=== PATIENT | male | born 1960 | race Caucasian/White ===

== ENCOUNTER 2017-06-20 12:29 | Inpatient (IN) | payer MEDICARE, OTHER ==
[~2017-06-20] VITALS: Ht 180.3 cm; Wt 86.0 kg
--- NOTE | ~2017-06-20 | CN ---
PATIENT NAME:STEPHANIE PENDLETON MEDICAL RECORD: [id number] : 58 LOCATION:D.MS Tong2207 ADMIT DATE: 06/20/17 ACCOUNT: [id number] CONSULTING PHYSICIAN: JOAQUÍN SCHWARTZ MD REFERRING PHYSICIAN: KIMI BACA MD DATE OF CONSULTATION: 06/25/2017 HISTORY OF PRESENT ILLNESS: Mr. Pendleton is a 57-year-old male I was asked to see by Dr. Torre. He has been admitted, he has pneumonia, sinusitis, fever. He had elevated white count of 50,000 and probable leukemia. I have been asked to see him about the sinusitis. He has been having pain in the left cheek for the past couple of weeks. He does have a history of iritis where the eye will get inflamed, it goes back further now on the same side. Him and the family both say that the eye gets inflamed, it is visibly changed, but it is not bothering him now, so it does fluctuate, hard to say if there is any relation to the sinus infection he has currently. He does not have any nasal drainage. No nasal obstruction. PAST MEDICAL HISTORY: Reviewed. PHYSICAL EXAMINATION: GENERAL: He is slightly short of breath, mildly labored breathing with some effort, but not in distress. He has got a good voice. He is a good historian. EYES: Sclerae and conjunctivae are normal. His pupils are small, reactive, and completely normal. There is no change to either eye. No periorbital changes. No erythema, everything looks perfectly normal right now. EARS: Canals and TMs are normal. NOSE: No masses, polyps, or drainage. I could see well into the nose, there is no congestion. I do not see any indication of infection. ORAL CAVITY AND OROPHARYNX: He has got some bad teeth. He has got some teeth that are bothering him, both on the left side mandibular tooth, it has got extensive decay and cavity in left posterior molar, but he says it is not bothering him right now. NECK: Normal. Cranial nerves II through VII, XI and XII are normal. CT REPORT: I could not get the films, but the report shows opacification of the left maxillary sinus with mucosal thickening diffusely to the other sinuses and some of the left anterior ethmoids involved as well. IMPRESSION: Leukemia, immunosuppression, and left maxillary sinusitis, possibly a dental source with that bad tooth on that left side. This has been bothering him in isolated opacified sinus. I do not really get the impression that there is any involvement of the eye due to the sinusitis, I think he also has a separate issue with chronic iritis, so I do not think there is any periorbital cellulitis or overall involvement of the sinusitis. I talked to Dr. Torre about him. He is not n.p.o. currently when I saw him at about 6 p.m., so we will get him set up for surgery first thing in the morning including a left middle meatal antrostomy to drain that and get cultures, etc. TRANSINT:[id number] Voice Confirmation ID: [id number] DOCUMENT ID: [id number] CONSULT REPORT [id number] STEPHANIE PENDLETON, JOAQUÍN CASIANO at 2020 CC: [id number] DICTATION DATE: 06/25/17904 FEED MIXER HELPER: 06/25/17 1117 [facility] IN [facility] [address] [place] [address]
--- NOTE | ~2017-06-20 | EC ---
PATIENT:STEPHANIE CUNNINGHAM DATE OF SERVICE: 06/20/17 SEX: M MEDICAL RECORD: [id number] DATE OF : 58 LOCATION:D.MS [place] AGE OF PATIENT: 57 ADMISSION DATE: 06/20/17 REFERRING PHYSICIAN: INTERPRETING PHYSICIAN: MARTINEZ BIRD MD ECHOCARDIOGRAM REPORT ECHO CHARGES 4 ECHO COMPLETE CLINICAL DIAGNOSIS: BIGEMINY ECHOCARDIOGRAPHIC MEASUREMENTS (adult normal given) AC root (d.<3.7cm) 3.6 cm LV Septum d (<1.2 cm> 1.4 cm Valve Excursion 1.9 cm LV Septum (systole) 1.9 cm Left Atria (s.<4.0cm> 3.2 cm LVPW d(<1.2cm) 1.5 cm RV (d.<2.3cm) 3.1 cm LVPW (sytole) 1.4 cm LV diastole(<5.6CM) 6.5 cm MV E-F(>70mm/sec) cm LV systole 4.7 cm LVOT Diameter 2.1 cm MV exc.(>10mm) 2.3 cm Est.ejection fraction (50-75%) % Pericardial Effusion N DOPPLER: LVIT cm/sec A 106 cm/sec E 87.0 cm/sec LA cm/sec RVSP 37 mmHg LVOT 95 cm/sec AOP1/2T m/s Asc. Ao 138 cm/sec RVOT 92 cm/sec RA cm/sec PA 144 cm/sec AV Gradient Peak 7.67 mmHg AV Mean 4.25 mmHg AV Area 2.5 cm MV Gradient Peak 6.19 mmHg MV Mean 2.68 mmHg MV Area cm COMMENTS: Hide Washer: Sonny BECKMAN Loading Unit Operator Powder Charging: 2 Dr. Pat TAPE# PACS DATE OF SERVICE: 06/22/2017 Echocardiogram FINDINGS: 1. Left ventricular chamber size is within normal limits. Left ventricular systolic function is normal. Overall ejection fraction estimated at 55%. 2. Left atrium is within normal limits at 3.2 cm. Right atrium and right ventricular chamber sizes are mildly dilated. 3. Valvular structures have normal structure and motion. ECHOCARDIOGRAM REPORT [id number] STEPHANIE CUNNINGHAM 4. Doppler interrogation reveals mild mitral regurgitation, mild tricuspid regurgitation, no other valvular insufficiency or stenosis. Pulmonary systolic pressure is estimated at 37 mmHg. 5. No evidence of pericardial effusion or left ventricular thrombus. TRANSINT:[id number] Voice Confirmation ID: [id number] DOCUMENT ID: [id number] MARTINEZ BIRD MD at 1546 CC: [id number] DICTATION DATE: 06/23/17 112 CLERK STENOGRAPHER: 06/23/17 1152 ADM IN [facility] [address] [place] [address]
--- NOTE | ~2017-06-20 | OP ---
PATIENT NAME: STEPHANIE CUNNINGHAM MEDICAL RECORD: [id number] :58 LOCATION:D.MS Tong2207 ADMISSION DATE:06/20/17 SURGEON: COLBY SCHWARTZ MD DATE OF OPERATION: 06/25/2017 PREOPERATIVE DIAGNOSES: Left maxillary sinusitis, leukemia, and a low platelet count. POSTOPERATIVE DIAGNOSES: Left maxillary sinusitis, leukemia, and a low platelet count. PROCEDURE: Left middle meatal antrostomy. SURGEON: Colby Schwartz MD ANESTHESIA: General orotracheal. BLOOD LOSS: Less than 5 cc. SPECIMENS: Cultures from the left maxillary sinus. PACKING: None. COMPLICATIONS: None. DISPOSITION: Recovery stable. FINDINGS: Left maxillary sinus really contained dark black old blood, no obvious purulence, it is fairly thin, no particular bad odor to it. There was no indication of any necrosis of any of the mucosal surfaces of the nose or indication of invasive fungal sinusitis. DESCRIPTION OF PROCEDURE: He was brought to the operating room and placed in supine position, sedated, and intubated by anesthesia. He had already been decongested with Afrin preoperatively. The table was turned 90 degrees. He was positioned, prepped and draped for sinus surgery. Using a 0-degree scope, both sides of the nose were examined. Really no masses, polyps, or drainage. Both inferior turbinates, middle turbinates, middle meatus, nasal vault, and nasopharynx was normal. Afrin pledget was placed in the left side then after getting everything ready, the pledgets were removed and then a 0-degree scope was then again inserted. Then, in the middle meatus got it with a curved olive tip suction behind the uncinate. With palpation, I inserted it into the maxillary sinus. Once that was done, hooked it up to a Luki trap to evacuate the sinus contents, which was dark, almost black, thin, but looked like old blood, which was suctioned out of the sinus. Once that was done, the Luki trap was removed and sealed off and cultures were obtained. The whole Luki trap was sent for Gram stain, aerobic, anaerobic, fungal and acid fast. Once that was done, the middle meatus was opened up a little bit more to where a large olive tip suction was easily inserted into that meatus and then it was irrigated repeatedly with 30 cc syringe with saline and suctioned out until it was clear. The nasopharynx was suctioned. There really was not much bleeding from that. Afrin pledget was placed in the middle meatus. He was awakened, extubated, transported to recovery and then the Afrin pledget was removed. There were no complications. OPERATIVE REPORT [id number] MARISASTEPHANIE TRANSINT:[id number] Voice Confirmation ID: [id number] DOCUMENT ID: [id number] COLBY SCHWARTZ MD at 202 CC: [id number] DICTATION DATE: 06/25/17908 ACCOUNTING METHODS ANALYST: 06/25/17 1132 ADM IN [facility] [address] [place] [address]
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
[2017-06-20 13:29] LABS: HEMATOCRIT 24.1 % (42.0-54.0); HEMOGLOBIN 7.9 g/dL (13.5-17.5); MCH 30.7 pg (26.0-34.0); MCHC 32.8 g/dL (31.0-37.0); MCV 93.8 fL (80.0-100.0); PLATELET COUNT 61 10x3/uL (130-400); RBC 2.57 10x6/uL (4.20-6.10); RDW 22.1 % (11.5-14.5)
[2017-06-20 13:53] LABS: ALBUMIN 3.2 g/dL (3.4-5.0); ANION GAP 10.8 mmol/L (8-16); BILIRUBIN - TOTAL 0.36 mg/dL (0.2-1.3); CALCIUM 8.6 mg/dL (8.5-10.1); CARBON DIOXIDE 27.3 mmol/L (21.0-32.0); CREATININE - SERUM 1.2 mg/dL (0.6-1.3); POTASSIUM - SERUM 4.1 mmol/L (3.5-5.1); PROTEIN - SERUM 7.3 g/dL (6.4-8.2)
[2017-06-20 14:03] LABS: LYMPHOCYTES 34 % (15-50); MONOCYTES 5 % (2-11); NEUTROPHILS 1 % (40-80)
[2017-06-20 14:04] LABS: PLATELET ESTIMATE DECREASED
[2017-06-20 14:07] LABS: ANISOCYTOSIS 1+; HYPOCHROMASIA OCC; POLYCHROMASIA OCC; SCHISTOCYTES OCC
[2017-06-20 14:09] LABS: WBC 73.5 10x3/uL (4.8-10.8)
[2017-06-20 14:17] LABS: APTT 27.9 SECONDS (22.8-39.4); INR 1.2 (0.85-1.17); PROTIME 14.7 SECONDS (11.6-15.0)
[2017-06-20 14:58] LABS: APPEARANCE CLEAR (CLEAR); BILIRUBIN NEGATIVE (NEGATIVE); COLOR YELLOW (YELLOW); GLUCOSE NEGATIVE (NEGATIVE); KETONE NEGATIVE (NEGATIVE); NITRITE NEGATIVE (NEGATIVE); PROTEIN NEGATIVE (NEGATIVE); SPECIFIC GRAVITY 1.015 (1.005-1.020); UROBILINOGEN NORMAL (NORMAL)
[2017-06-20 21:24] VITALS: BP 120/65
[2017-06-20 22:00] VITALS: BP 118/81
[2017-06-20 23:00] VITALS: BP 119/85
[2017-06-20 23:26] VITALS: BP 120/65; BMI 27.8
[2017-06-20 23:44] LABS: % SATURATION 36 % (15-55); IRON 54 ug/dl (35-150); TOTAL IRON BIND CAPACITY 149 ug/dl (260-445); UNSAT IRON BIND CAPACITY 95 ug/dl (150-375)
[2017-06-21] VITALS (20 sets, daily range): BP systolic 108–165; BP diastolic 64–101; Ht 180.3 cm; Wt 86.0 kg
[2017-06-21] LABS: THYROID STIMULATING HORMONE 0.7 uIU/mL (0.36-3.74)
[2017-06-21 00:30] LABS: ERYTHROCYTE SEDIMENTATION RATE 100 mm/hr (0-20)
[2017-06-21 04:31] LABS: HEMATOCRIT 21.2 % (42.0-54.0); MCH 30.9 pg (26.0-34.0); MCHC 32.5 g/dL (31.0-37.0); MCV 95.1 fL (80.0-100.0); MEAN PLATELET VOLUME 9.7 fL (7.4-10.4); PLATELET COUNT 54 10x3/uL (130-400); RBC 2.23 10x6/uL (4.20-6.10); RDW 22.8 % (11.5-14.5)
[2017-06-21 04:33] LABS: HEMOGLOBIN 6.9 g/dL (13.5-17.5)
[2017-06-21 04:34] LABS: ALBUMIN 2.5 g/dL (3.4-5.0); ANION GAP 14.1 mmol/L (8-16); BILIRUBIN - TOTAL 0.38 mg/dL (0.2-1.3); CALCIUM 8.2 mg/dL (8.5-10.1); CARBON DIOXIDE 24.9 mmol/L (21.0-32.0); CREATININE - SERUM 1.3 mg/dL (0.6-1.3); PROTEIN - SERUM 6.4 g/dL (6.4-8.2)
[2017-06-21 05:24] LABS: HYPOCHROMASIA 1+; LYMPHOCYTES 73 % (15-50); NEUTROPHILS 1 % (40-80); PLATELET ESTIMATE DECREASED; TARGET CELLS 1+
[2017-06-21 08:46] LABS: CKMB 0.6 U/L (0.0-3.6); CREATINE KINASE 106 UL (21-232)
[2017-06-21 08:51] LABS: TROPONIN-I < 0.017 ng/mL (0.000-0.060)
[2017-06-21 12:50] LABS: CKMB 0.5 U/L (0.0-3.6); CREATINE KINASE 129 UL (21-232)
[2017-06-21 12:52] LABS: TROPONIN-I < 0.017 ng/mL (0.000-0.060)
[2017-06-21 18:58] LABS: HEMATOCRIT 21.6 % (42.0-54.0); HEMOGLOBIN 6.9 g/dL (13.5-17.5); MCH 30.1 pg (26.0-34.0); MCHC 31.9 g/dL (31.0-37.0); MCV 94.3 fL (80.0-100.0); MEAN PLATELET VOLUME 8.9 fL (7.4-10.4); PLATELET COUNT 41 10x3/uL (130-400); RBC 2.29 10x6/uL (4.20-6.10); RDW 22.8 % (11.5-14.5); WBC 96.9 10x3/uL (4.8-10.8)
[2017-06-21 19:25] LABS: CKMB 0.4 U/L (0.0-3.6); CREATINE KINASE 85 UL (21-232); PLATELET ESTIMATE DECREASED
[2017-06-21 19:27] LABS: LYMPHOCYTES 68 % (15-50); NEUTROPHILS 3 % (40-80)
[2017-06-21 19:28] LABS: TROPONIN-I < 0.017 ng/mL (0.000-0.060)
[2017-06-22] VITALS (19 sets, daily range): BP systolic 116–159; BP diastolic 79–105
[2017-06-22 06:13] LABS: RAPID PLASMA REAGIN Non Reactive (Non Reactive)
[2017-06-22 06:45] LABS: HEMATOCRIT 28.6 % (42.0-54.0); HEMOGLOBIN 9.3 g/dL (13.5-17.5); MCH 29.8 pg (26.0-34.0); MCHC 32.5 g/dL (31.0-37.0); MCV 91.7 fL (80.0-100.0); RBC 3.12 10x6/uL (4.20-6.10); RDW 21.7 % (11.5-14.5)
[2017-06-22 06:52] LABS: ALBUMIN 2.2 g/dL (3.4-5.0); BILIRUBIN - TOTAL 0.5 mg/dL (0.2-1.3); CALCIUM 8.5 mg/dL (8.5-10.1); CARBON DIOXIDE 26.1 mmol/L (21.0-32.0); CREATININE - SERUM 1.1 mg/dL (0.6-1.3); PLATELET COUNT 40 10x3/uL (130-400); PROTEIN - SERUM 6.5 g/dL (6.4-8.2)
[2017-06-22 07:13] LABS: ANION GAP 11.8 mmol/L (8-16); POTASSIUM - SERUM 4.9 mmol/L (3.5-5.1)
[2017-06-22 08:37] LABS: WBC 44.7 10x3/uL (4.8-10.8)
[2017-06-22 11:16] LABS: ANA REFLEX - DIRECT Negative (Negative)
[2017-06-23] VITALS (7 sets, daily range): BP systolic 134–157; BP diastolic 78–96
[2017-06-23 05:43] LABS: HEMATOCRIT 26.7 % (42.0-54.0); MCH 30.1 pg (26.0-34.0); MCHC 33.7 g/dL (31.0-37.0); MCV 89.3 fL (80.0-100.0); PLATELET COUNT 37 10x3/uL (130-400); RBC 2.99 10x6/uL (4.20-6.10); WBC 28.3 10x3/uL (4.8-10.8)
[2017-06-23 05:51] LABS: ALBUMIN 2.1 g/dL (3.4-5.0); BILIRUBIN - TOTAL 0.4 mg/dL (0.2-1.3); CALCIUM 8.1 mg/dL (8.5-10.1); CARBON DIOXIDE 25.2 mmol/L (21.0-32.0); CREATININE - SERUM 1.1 mg/dL (0.6-1.3); MAGNESIUM - SERUM 1.8 mg/dL (1.8-2.4); PHOSPHOROUS 2.5 mg/dL (2.5-4.9); POTASSIUM - SERUM 4.2 mmol/L (3.5-5.1); PROTEIN - SERUM 6.1 g/dL (6.4-8.2)
[2017-06-23 07:25] LABS: HYPOCHROMASIA OCC; LYMPHOCYTES 70 % (15-50); MONOCYTES 4 % (2-11); PLATELET ESTIMATE NORMAL
[2017-06-24 03:30] VITALS: BP 131/92
[2017-06-24 05:15] LABS: HEMATOCRIT 28.6 % (42.0-54.0); HEMOGLOBIN 9.5 g/dL (13.5-17.5); MCH 30.2 pg (26.0-34.0); MCHC 33.2 g/dL (31.0-37.0); MCV 90.8 fL (80.0-100.0); RBC 3.15 10x6/uL (4.20-6.10); RDW 20.6 % (11.5-14.5)
[2017-06-24 05:16] LABS: PLATELET COUNT 32 10x3/uL (130-400)
[2017-06-24 05:41] LABS: ALBUMIN 2.2 g/dL (3.4-5.0); ALKALINE PHOSPHATASE 81 U/L (46-116); CALCIUM 8.1 mg/dL (8.5-10.1); CARBON DIOXIDE 28.3 mmol/L (21.0-32.0); CHLORIDE - SERUM 101 mmol/L (98-107); POTASSIUM - SERUM 4.2 mmol/L (3.5-5.1); PROTEIN - SERUM 6.5 g/dL (6.4-8.2); SODIUM 135 mmol/L (136-145); eGFR NON AFRICAN AMERICAN 81 mL/min (90-120)
[2017-06-24 05:42] LABS: ALT (SGPT) 37 U/L (10-68); CALC OSMOLALITY 277 mosm/kg (275-300); GLUCOSE 224 mg/dL (74-106); UREA NITROGEN 16 mg/dL (7-18)
[2017-06-24 05:52] LABS: BASOPHILS 1 % (0-2); EOSINOPHILS 1 % (0-7); LYMPHOCYTES 50 % (15-50); NEUTROPHILS 2 % (40-80); PLATELET ESTIMATE DECREASED
[2017-06-24 07:03] VITALS: BP 144/90
[2017-06-24 11:10] VITALS: BP 139/88
[2017-06-24 16:27] VITALS: BP 144/88
[2017-06-24 20:00] VITALS: BP 133/82
[2017-06-25] VITALS: BP 151/87
[2017-06-25 05:00] VITALS: BP 113/71
[2017-06-25 06:19] LABS: HEMATOCRIT 29.7 % (42.0-54.0); HEMOGLOBIN 9.8 g/dL (13.5-17.5); MCH 29.9 pg (26.0-34.0); MCV 90.5 fL (80.0-100.0); RBC 3.28 10x6/uL (4.20-6.10); RDW 20.5 % (11.5-14.5)
[2017-06-25 06:21] LABS: PLATELET COUNT 36 10x3/uL (130-400); WBC 55.4 10x3/uL (4.8-10.8)
[2017-06-25 06:27] LABS: ALBUMIN 2.5 g/dL (3.4-5.0); ALKALINE PHOSPHATASE 84 U/L (46-116); CALC OSMOLALITY 279 mosm/kg (275-300); CALCIUM 8.5 mg/dL (8.5-10.1); CARBON DIOXIDE 26.4 mmol/L (21.0-32.0); CHLORIDE - SERUM 101 mmol/L (98-107); CREATININE - SERUM 0.9 mg/dL (0.6-1.3); GLUCOSE 186 mg/dL (74-106); SODIUM 137 mmol/L (136-145); UREA NITROGEN 15 mg/dL (7-18); eGFR NON AFRICAN AMERICAN > 90 mL/min (90-120)
[2017-06-25 06:32] LABS: ALT (SGPT) 84 U/L (10-68)
[2017-06-25 07:08] LABS: LYMPHOCYTES 77 % (15-50)
[2017-06-25 07:09] LABS: PLATELET ESTIMATE DECREASED; SMUDGE CELLS 1+
[2017-06-25 09:20] VITALS: BP 155/98
[2017-06-25 11:49] VITALS: BP 159/90
[2017-06-25 16:49] VITALS: BP 145/80
[2017-06-25 20:00] VITALS: BP 156/90
[2017-06-26] VITALS (7 sets, daily range): BP systolic 125–160; BP diastolic 75–102
[2017-06-26 06:01] LABS: HEMATOCRIT 29.8 % (42.0-54.0); HEMOGLOBIN 9.8 g/dL (13.5-17.5); MCH 30.2 pg (26.0-34.0); MCHC 32.9 g/dL (31.0-37.0); PLATELET COUNT 22 10x3/uL (130-400); RBC 3.24 10x6/uL (4.20-6.10); RDW 20.4 % (11.5-14.5); WBC 32.2 10x3/uL (4.8-10.8)
[2017-06-26 06:20] LABS: ALBUMIN 2.5 g/dL (3.4-5.0); ALKALINE PHOSPHATASE 78 U/L (46-116); ALT (SGPT) 102 U/L (10-68); BILIRUBIN - TOTAL 0.54 mg/dL (0.2-1.3); CALC OSMOLALITY 281 mosm/kg (275-300); CALCIUM 8.3 mg/dL (8.5-10.1); CARBON DIOXIDE 26.7 mmol/L (21.0-32.0); CHLORIDE - SERUM 102 mmol/L (98-107); CREATININE - SERUM 0.9 mg/dL (0.6-1.3); POTASSIUM - SERUM 4.3 mmol/L (3.5-5.1); SODIUM 136 mmol/L (136-145); UREA NITROGEN 17 mg/dL (7-18); eGFR NON AFRICAN AMERICAN > 90 mL/min (90-120)
[2017-06-26 06:28] LABS: GLUCOSE 247 mg/dL (74-106)
[2017-06-26 06:41] LABS: LYMPHOCYTES 46 % (15-50); MONOCYTES 5 % (2-11); NEUTROPHILS 1 % (40-80); PLATELET ESTIMATE DECREASED; ROULEAUX OCC
[2017-06-26 06:42] LABS: ANISOCYTOSIS 1+; TEAR DROP CELLS OCC
[2017-06-27 03:58] VITALS: BP 136/77
[2017-06-27 05:50] LABS: HEMOGLOBIN A1C 7.8 % (4.8-6.0)
[2017-06-27 06:16] LABS: HEMATOCRIT 28.5 % (42.0-54.0); HEMOGLOBIN 9.3 g/dL (13.5-17.5); MCH 30.2 pg (26.0-34.0); MCHC 32.6 g/dL (31.0-37.0); MCV 92.5 fL (80.0-100.0); RBC 3.08 10x6/uL (4.20-6.10); RDW 20.2 % (11.5-14.5); WBC 28.9 10x3/uL (4.8-10.8)
[2017-06-27 06:17] LABS: PLATELET COUNT 24 10x3/uL (130-400)
[2017-06-27 06:26] LABS: ALBUMIN 2.5 g/dL (3.4-5.0); ALKALINE PHOSPHATASE 87 U/L (46-116); ALT (SGPT) 88 U/L (10-68); CALC OSMOLALITY 280 mosm/kg (275-300); CARBON DIOXIDE 29.9 mmol/L (21.0-32.0); CHLORIDE - SERUM 101 mmol/L (98-107); CREATININE - SERUM 0.9 mg/dL (0.6-1.3); GLUCOSE 235 mg/dL (74-106); POTASSIUM - SERUM 4.6 mmol/L (3.5-5.1); PRO BNP 209 pg/mL (0-125); SODIUM 136 mmol/L (136-145); UREA NITROGEN 16 mg/dL (7-18); eGFR NON AFRICAN AMERICAN > 90 mL/min (90-120)
[2017-06-27 07:53] LABS: LYMPHOCYTES 24 % (15-50); MONOCYTES 7 % (2-11); PLATELET ESTIMATE DECREASED
[2017-06-27 07:54] LABS: ANISOCYTOSIS 1+
[2017-06-27 09:32] VITALS: BP 114/78
[2017-06-27 13:27] VITALS: BP 138/85
[2017-06-27 16:41] VITALS: BP 129/74
[2017-06-27 23:00] VITALS: BP 138/80
[2017-06-28 06:52] LABS: HEMATOCRIT 26.7 % (42.0-54.0); HEMOGLOBIN 8.7 g/dL (13.5-17.5); MCH 30.1 pg (26.0-34.0); MCHC 32.6 g/dL (31.0-37.0); MCV 92.4 fL (80.0-100.0); MEAN PLATELET VOLUME 9.8 fL (7.4-10.4); PLATELET COUNT 50 10x3/uL (130-400); RBC 2.89 10x6/uL (4.20-6.10); RDW 20.1 % (11.5-14.5); WBC 23.5 10x3/uL (4.8-10.8)
[2017-06-28 07:29] LABS: ALBUMIN 2.5 g/dL (3.4-5.0); ALKALINE PHOSPHATASE 85 U/L (46-116); CALCIUM 8.5 mg/dL (8.5-10.1); CARBON DIOXIDE 30.6 mmol/L (21.0-32.0); CHLORIDE - SERUM 102 mmol/L (98-107); CREATININE - SERUM 0.9 mg/dL (0.6-1.3); POTASSIUM - SERUM 4.6 mmol/L (3.5-5.1); PROTEIN - SERUM 6.8 g/dL (6.4-8.2); SODIUM 138 mmol/L (136-145); UREA NITROGEN 15 mg/dL (7-18); eGFR NON AFRICAN AMERICAN > 90 mL/min (90-120)
[2017-06-28 07:30] LABS: ALT (SGPT) 63 U/L (10-68); CALC OSMOLALITY 278 mosm/kg (275-300); GLUCOSE 143 mg/dL (74-106)
[2017-06-28 07:31] LABS: LYMPHOCYTES 87 % (15-50); PLATELET ESTIMATE DECREASED
[2017-06-28 07:36] LABS: ANISOCYTOSIS OCC; SMUDGE CELLS OCC
[2017-06-28 08:45] VITALS: BP 129/73
[2017-06-28 09:58] LABS: HEMOGLOBIN A1C 8.5 % (4.8-6.0)
[2017-06-28 12:45] VITALS: BP 130/74
[2017-06-28 23:00] VITALS: BP 140/84
[2017-06-29 05:00] VITALS: BP 128/77
[2017-06-29 06:09] LABS: HEMATOCRIT 28.9 % (42.0-54.0); HEMOGLOBIN 9.6 g/dL (13.5-17.5); MCH 30.5 pg (26.0-34.0); MCHC 33.2 g/dL (31.0-37.0); MCV 91.7 fL (80.0-100.0); PLATELET COUNT 54 10x3/uL (130-400); RBC 3.15 10x6/uL (4.20-6.10); RDW 20.2 % (11.5-14.5)
[2017-06-29 06:14] LABS: WBC 14.1 10x3/uL (4.8-10.8)
[2017-06-29 06:32] LABS: ALBUMIN 2.7 g/dL (3.4-5.0); ALKALINE PHOSPHATASE 101 U/L (46-116); ALT (SGPT) 52 U/L (10-68); CALC OSMOLALITY 279 mosm/kg (275-300); CALCIUM 8.7 mg/dL (8.5-10.1); CARBON DIOXIDE 27.8 mmol/L (21.0-32.0); CHLORIDE - SERUM 103 mmol/L (98-107); CREATININE - SERUM 0.8 mg/dL (0.6-1.3); GLUCOSE 147 mg/dL (74-106); POTASSIUM - SERUM 4.3 mmol/L (3.5-5.1); PROTEIN - SERUM 6.7 g/dL (6.4-8.2); SODIUM 138 mmol/L (136-145); UREA NITROGEN 16 mg/dL (7-18); eGFR NON AFRICAN AMERICAN > 90 mL/min (90-120)
[2017-06-29 07:38] LABS: ANISOCYTOSIS 1+; LYMPHOCYTES 45 % (15-50); MONOCYTES 11 % (2-11); NEUTROPHILS 1 % (40-80); PLATELET ESTIMATE DECREASED
[2017-06-29 12:45] VITALS: BP 121/74
[2017-06-29 16:56] VITALS: BP 134/90
[2017-06-29 20:00] VITALS: BP 118/77
[2017-06-30] VITALS (10 sets, daily range): BP systolic 113–161; BP diastolic 53–88
[2017-06-30 06:25] LABS: HEMATOCRIT 27.9 % (42.0-54.0); HEMOGLOBIN 8.9 g/dL (13.5-17.5); MCH 29.4 pg (26.0-34.0); MCHC 31.9 g/dL (31.0-37.0); MCV 92.1 fL (80.0-100.0); RBC 3.03 10x6/uL (4.20-6.10); RDW 20.2 % (11.5-14.5)
[2017-06-30 06:42] LABS: WBC 7.6 10x3/uL (4.8-10.8)
[2017-06-30 06:43] LABS: PLATELET COUNT 49 10x3/uL (130-400)
[2017-06-30 06:58] LABS: ANISOCYTOSIS OCC; LYMPHOCYTES 42 % (15-50); MONOCYTES 3 % (2-11); PLATELET ESTIMATE DECREASED; POLYCHROMASIA OCC; SMUDGE CELLS OCC
[2017-06-30 07:03] LABS: ALBUMIN 2.7 g/dL (3.4-5.0); ALKALINE PHOSPHATASE 88 U/L (46-116); ALT (SGPT) 43 U/L (10-68); CALC OSMOLALITY 284 mosm/kg (275-300); CALCIUM 8.8 mg/dL (8.5-10.1); CARBON DIOXIDE 29.5 mmol/L (21.0-32.0); CHLORIDE - SERUM 104 mmol/L (98-107); GLUCOSE 145 mg/dL (74-106); POTASSIUM - SERUM 4.5 mmol/L (3.5-5.1); PROTEIN - SERUM 7.3 g/dL (6.4-8.2); SODIUM 141 mmol/L (136-145); UREA NITROGEN 15 mg/dL (7-18); eGFR NON AFRICAN AMERICAN 81 mL/min (90-120)
[2017-06-30] MEDS ORDERED: FEXOFENADINE HC60 MG PO (13:47)
[2017-06-30] MEDS ORDERED: CATAPRES0.1 MG PO (13:48)
[2017-06-30] MEDS ORDERED: NICODERM C1 PATCH .1 TRANSDERM (13:48)
[2017-06-30] MEDS ORDERED: MUCINEX DM ER1 EAC1 PO (13:48)
[2017-06-30] MEDS ORDERED: NORVASC5 MG PO (13:48)
[2017-06-30] MEDS ORDERED: TESSALON PERLE100 MG PO (13:48)
[2017-06-30] MEDS ORDERED: FLORAJEN3 CAPS460 MG PO (13:49)
[2017-06-30] MEDS ORDERED: NEOSPORIN OPTH LEFT EYE (13:49)
[2017-06-30] MEDS ORDERED: LEVAQUIN750 MG PO (13:50)
[2017-06-30] MEDS ORDERED: DIFLUCAN150 MG PO (13:50)
[2017-06-30] MEDS ORDERED: ZOVIRAX200 MG PO (13:52)
[2017-06-30 14:17] LABS: FUNGUS STAIN Final report (())
[2017-07-25 07:27] LABS: FUNGUS MYCOLOGY CULTURE Final report (())
[2017-08-09 14:09] LABS: FLOW - INTERPRETATION SEE REPORT
== END 2017-06-30 15:38 | disposition home or self-care (01) | DRG 834 ==
LOC: D.ER 12:29 → D.MS 18:15 → D.ICU 18:15 → D.MS 06-22 20:31
PROVIDERS: Emergency Medicine; Family Medicine; Legal Medicine; Nurse Practitioner Family; Otolaryngology
PROC: 099R3ZZ Drainage of Left Maxillary Sinus, Percutaneous Approach (ICD-10-PCS; principal; 2017-06-25 08:00)
PROC: 0DB78ZX Excision of Stomach, Pylorus, Via Natural or Artificial Opening Endoscopic, Diagnostic (ICD-10-PCS; 2017-06-30)
PROC: 0DBL8ZX Excision of Transverse Colon, Via Natural or Artificial Opening Endoscopic, Diagnostic (ICD-10-PCS; 2017-06-30)
DX: C95.00 Acute leukemia of unspecified cell type not having achieved remission (principal); J18.1 Lobar pneumonia, unspecified organism; K25.4 Chronic or unspecified gastric ulcer with hemorrhage; F17.203 Nicotine dependence unspecified, with withdrawal; H20.9 Unspecified iridocyclitis; J44.1 Chronic obstructive pulmonary disease with (acute) exacerbation; J44.0 Chronic obstructive pulmonary disease with (acute) lower respiratory infection; Q43.8 Other specified congenital malformations of intestine; D64.9 Anemia, unspecified; D69.6 Thrombocytopenia, unspecified; K21.9 Gastro-esophageal reflux disease without esophagitis; R00.8 Other abnormalities of heart beat; J01.10 Acute frontal sinusitis, unspecified; E11.65 Type 2 diabetes mellitus with hyperglycemia; D17.5 Benign lipomatous neoplasm of intra-abdominal organs; D17.79 Benign lipomatous neoplasm of other sites; K63.5 Polyp of colon; K64.8 Other hemorrhoids

== ENCOUNTER 2017-09-18 09:28 | Outpatient (CLI) | payer MEDICARE, OTHER ==
[~2017-09-18] VITALS: Ht 180.3 cm; Wt 80.9 kg
[~2017-09-18 09:28] MED LIST: CATAPRES0.1 MG PO; DIFLUCAN150 MG PO; FEXOFENADINE HC60 MG PO; FLORAJEN3 CAPS460 MG PO; LEVAQUIN750 MG PO; MUCINEX DM ER1 EAC1 PO; NEOSPORIN OPTH LEFT EYE; NICODERM C1 PATCH .1 TRANSDERM; NORVASC5 MG PO; TESSALON PERLE100 MG PO; ZOVIRAX200 MG PO
[2017-09-18 10:14] VITALS: BP 122/72; Ht 180.3 cm; Wt 80.9 kg
== END 2017-09-18 16:25 | disposition home or self-care (01) ==
LOC: D.OPS 09:28
DX: D64.9 Anemia, unspecified (principal); D69.6 Thrombocytopenia, unspecified

== ENCOUNTER 2017-10-20 09:35 | Outpatient (CLI) | payer MEDICARE, OTHER ==
[~2017-10-20] VITALS: Ht 180.3 cm; Wt 85.0 kg
[2017-10-20 11:24] VITALS: Ht 180.3 cm; Wt 85.0 kg
== END 2017-10-20 16:35 | disposition home or self-care (01) ==
LOC: D.OPS 09:35
DX: D64.9 Anemia, unspecified (principal); D69.6 Thrombocytopenia, unspecified

== ENCOUNTER 2017-10-23 10:12 | Outpatient (CLI) | payer MEDICARE, OTHER ==
[~2017-10-23] VITALS: Ht 180.3 cm; Wt 85.0 kg
[2017-10-23 11:10] VITALS: Ht 180.3 cm; Wt 85.0 kg
== END 2017-10-23 21:00 | disposition home or self-care (01) ==
LOC: D.OPS 10:12
DX: D64.9 Anemia, unspecified (principal); D69.6 Thrombocytopenia, unspecified

== ENCOUNTER 2017-10-27 08:59 | Outpatient (CLI) | payer MEDICARE, OTHER ==
[~2017-10-27] VITALS: Ht 180.3 cm; Wt 84.1 kg
[2017-10-27 10:01] VITALS: Ht 180.3 cm; Wt 84.1 kg
== END 2017-10-27 12:20 | disposition home or self-care (01) ==
LOC: D.OPS 08:59
DX: D69.6 Thrombocytopenia, unspecified (principal)

== ENCOUNTER 2017-10-30 09:05 | Outpatient (CLI) | payer MEDICARE, OTHER ==
[2017-10-27 10:01] VITALS: BMI 25.8
== END 2017-10-30 16:50 | disposition home or self-care (01) ==
LOC: D.OPS 09:05
DX: D64.9 Anemia, unspecified (principal)

== ENCOUNTER 2017-11-15 09:22 | Outpatient (CLI) | payer MEDICARE, OTHER ==
[~2017-11-15] VITALS: Ht 180.3 cm; Wt 87.3 kg
[2017-11-15 11:38] VITALS: BP 126/80; Ht 180.3 cm; Wt 87.3 kg
== END 2017-11-15 16:22 | disposition home or self-care (01) ==
LOC: D.OPS 09:22
DX: D64.9 Anemia, unspecified (principal)

== ENCOUNTER 2017-11-17 09:13 | Outpatient (CLI) | payer MEDICARE, OTHER ==
[~2017-11-17] VITALS: Ht 180.3 cm; Wt 87.3 kg
[2017-11-17 09:48] VITALS: BP 134/88; Ht 180.3 cm; Wt 87.3 kg
== END 2017-11-17 13:30 | disposition home or self-care (01) ==
LOC: D.OPS 09:13
DX: D47.3 Essential (hemorrhagic) thrombocythemia (principal)

== ENCOUNTER 2017-11-20 09:03 | Outpatient (CLI) | payer MEDICARE, OTHER ==
[~2017-11-20] VITALS: Ht 180.3 cm; Wt 87.3 kg
[2017-11-20 12:59] VITALS: Ht 180.3 cm; Wt 87.3 kg
== END 2017-11-20 13:08 | disposition home or self-care (01) ==
LOC: D.OPS 09:03
DX: D64.9 Anemia, unspecified (principal)

== ENCOUNTER 2017-11-22 09:14 | Outpatient (CLI) | payer MEDICARE, OTHER ==
[~2017-11-22] VITALS: Ht 180.3 cm; Wt 87.3 kg
[2017-11-22] MEDS ORDERED: CYCLOBENZAPRINE5 MG PO (09:49)
[2017-11-22] MEDS ORDERED: RYDAPT 25 MG PO (09:50)
[2017-11-22] MEDS ORDERED: DILAUDID4 MG PO (09:51)
[2017-11-22] MEDS ORDERED: BASAGLAR K100 UNIT/1 SC (09:51)
[2017-11-22] MEDS ORDERED: COMPAZINE10 MG PO (09:51)
[2017-11-22] MEDS ORDERED: ZOVIRAX400 MG PO (09:52)
[2017-11-22] MEDS ORDERED: WELLBUTRIN SR150 MG PO (09:52)
[2017-11-22] MEDS ORDERED: HUMULIN R100 U/ML SC (09:53)
[2017-11-22] MEDS ORDERED: SEROQUEL50 MG PO (09:53)
[2017-11-22] MEDS ORDERED: LEVAQUIN500 MG PO (09:54)
[2017-11-22] MEDS ORDERED: FLOMAX0.4 MG PO (09:54)
[2017-11-22] MEDS ORDERED: PROTONIX40 MG PO (09:54)
[2017-11-22] MEDS ORDERED: DESERYL100 MG PO (09:55)
[2017-11-22] MEDS ORDERED: NATURAL SENNA8.6 MG PO (09:55)
[2017-11-22] MEDS ORDERED: CRESEMBA 186 MG PO (09:57)
[2017-11-22 10:05] VITALS: BP 122/75; Ht 180.3 cm; Wt 87.3 kg
== END 2017-11-22 14:15 | disposition home or self-care (01) ==
LOC: D.OPS 09:14
DX: D69.6 Thrombocytopenia, unspecified (principal)

== ENCOUNTER 2017-11-24 08:37 | Outpatient (CLI) | payer MEDICARE, OTHER ==
[~2017-11-24] VITALS: Ht 180.3 cm; Wt 88.2 kg
[~2017-11-24 08:37] MED LIST changes: +BASAGLAR K100 UNIT/1 SC; +COMPAZINE10 MG PO; +CRESEMBA 186 MG PO; +CYCLOBENZAPRINE5 MG PO; +DESERYL100 MG PO; +DILAUDID4 MG PO; +FLOMAX0.4 MG PO; +HUMULIN R100 U/ML SC; +LEVAQUIN500 MG PO; +NATURAL SENNA8.6 MG PO; +PROTONIX40 MG PO; +RYDAPT 25 MG PO; +SEROQUEL50 MG PO; +WELLBUTRIN SR150 MG PO; +ZOVIRAX400 MG PO
[2017-11-24 09:35] VITALS: Ht 180.3 cm; Wt 88.2 kg
== END 2017-11-24 13:28 | disposition home or self-care (01) ==
LOC: D.OPS 08:37
DX: D64.9 Anemia, unspecified (principal)

== ENCOUNTER 2017-11-28 09:12 | Outpatient (CLI) | payer MEDICARE, OTHER ==
[~2017-11-28] VITALS: Ht 180.3 cm; Wt 72.7 kg
[2017-11-28 12:04] VITALS: Ht 180.3 cm; Wt 72.7 kg
== END 2017-11-28 16:30 | disposition home or self-care (01) ==
LOC: D.OPS 09:12
DX: D64.9 Anemia, unspecified (principal); D69.6 Thrombocytopenia, unspecified; Z01.812 Encounter for preprocedural laboratory examination